=== PATIENT | male | born 1990 | race Caucasian/White ===

== ENCOUNTER 2019-05-31 10:50 | Emergency (ER) | payer BC, SELFPAY ==
[2019-05-31 10:52] VITALS: BP 148/83; PULSE 84; RESP 20; TEMP 36.5; O2SAT 100; BMI 24.3
--- NOTE | 2019-05-31 11:17 | ECG_ITS ---
Measurements Intervals [place] Rate: 76 P: 66 IA: 134 QRS: 80 QRSD: 78 T: 61 QT: 361 QTc: 407 SINUS RHYTHM WITH SINUS ARRHYTHMIA No previous ECG available for comparison Electronically Signed On 05-31-2019 16:50:18 [employer] by Luther Oakley M.D. [id number]
--- NOTE | 2019-05-31 11:17 | XR_ITS ---
WS: [id number] XR chest 1V portable [id number] REASON FOR EXAM: htn FINDINGS: The heart and mediastinal interfaces were normal. The cardiac silhouette was not enlarged. The lung helms are well aerated. No pneumonia, pleural effusion, pulmonary edema, or mass effect. The hilum and apices are normal. No osseous abnormalities. XR/XR chest 1V portable [id number] IMPRESSION: No active cardiopulmonary changes.
--- NOTE | 2019-05-31 11:18 | ED_ITS ---
HPI - General Adult General: Chief complaint: General Medical Stated complaint: HYPERTENSION Time Seen by Provider: 05/31/19 11:05 History of Present Illness: HPI narrative: Patient arrived via ambulance from the [facility] with the hypertensive episode. 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 just started feeling funny in his hands and arms and had little bit of tunnel vision he checked his pressure with a blood pressure cuff and stethoscope and it was elevated and he went down to the clinic at [place] and they checked it and his blood pressure was very elevated about 170/100 patient does daily workouts does not do any energy drinks had 2 cups of coffee this morning has drank about third gallon of water patient does feel fine now does have some pain in his trapezius on the right side with turning the head patient relates that about 2 weeks ago he checked his blood pressures about 170/100 at home and he has been told multiple times that his systolic pressures been elevated has a history of high blood pressure on his mom's side MD complaint: Hypertension Onset (ago): minute(s) Associated symptoms: Reports nausea and palpitations; Deny dyspnea, headache(s) or rash Review of Systems Narrative: No tenderness to his trapezius presently but he said when he turned his head to the right he felt little twinge of pain on the right side Const: Denies: fever, chills or body aches Eyes: Denies: change in vision or blurry vision ENMT: Denies: throat pain or nasal congestion Card: Reports: palpitations Resp: Denies: shortness of breath, productive cough or non-productive cough GI: Reports: nausea : Denies: difficulty urinating Skin/Breast: Denies: rash Neuro: Denies: headache Psych: Denies: anxiety or depression Tha/Lymph: Denies: easy bruising PFSH ED PFSH: Social History Smoking and tobacco status: never smoked Course Vital Signs: Vital signs: Vital Signs Temperature 97.7 F 05/31/19 10:52 Pulse Rate 84 05/31/19 10:52 Respiratory Rate 20 H 05/31/19 10:52 Blood Pressure 148/83 05/31/19 10:52 Pulse Oximetry 100 05/31/19 10:52 Coding Level of Care Code ED Director [employer] for Pola Squires
[2019-05-31 11:45] LABS: Basophils # 0.1 10^3/uL (0.0-0.1); Basophils % 0.4 %; Eosinophils # 0.1 10^3/uL (0.0-0.8); Eosinophils % 1.1 %; Hematocrit 44.8 % (42.0-52.0); Hemoglobin 15.3 g/dL (11.7-16.6); Lymphocytes # 1.3 10^3/uL (0.8-4.8); Lymphocytes % 11.3 %; Mean Corpuscular HGB Conc 34.2 g/dL (30.0-36.0); Mean Corpuscular Hemoglobin 29.5 pg (28.0-34.0); Mean Corpuscular Volume 86.5 fL (80-94); Mean Platelet Volume 9.5 fL (7.4-10.4); Monocytes # 0.7 10^3/uL (0.2-0.9); Monocytes % 6.1 %; Neutrophils # 9.6 10^3/uL (1.8-7.7); Neutrophils % 80.7 %; Nucleated Red Blood Cells % 0 %; Platelet Count 208 10^3/cmm (130-400); Red Blood Count 5.18 10^6/uL (4.1-5.3); Red Cell Distribution Width 11.3 % (12.1-15.1); White Blood Count 11.9 10^3/uL (4.0-10.0)
[2019-05-31 12:05] LABS: Alanine Aminotransferase 18 U/L (0-41); Albumin Level 4.7 g/dL (3.5-5.2); Alkaline Phosphatase 85 IU/L (40-130); Anion Gap 15.8 (5-19); Aspartate Amino Transferase 24 U/L (0-40); Blood Urea Nitrogen 14 mg/dL (6-20); C Reactive Protein 0.3 mg/L (0.0-4.9); Calcium 9.3 mg/dL (8.5-10.5); Carbon Dioxide 25 mmol/L (22-29); Chloride 100 mmol/L (98-107); Globulin 2.7 g/dL (1.3-4.6); Glomerular Filtration Rate 80.3 mL/min (90-130); Glucose 117 mg/dL (65-115); Magnesium 1.6 mg/dL (1.7-2.3); Potassium 3.8 mmol/L (3.5-5.1); Sodium 137 mmol/L (136-145); Total Bilirubin 0.5 mg/dL (0.15-1.2); Total Protein 7.4 g/dL (6.6-8.7)
[2019-05-31 12:06] LABS: Troponin T (5th) Once 6 ng/mL (0-15)
[2019-05-31 13:03] VITALS: BP 140/66; PULSE 68; RESP 18; O2SAT 97
== END 2019-05-31 13:04 | disposition home or self-care (01) ==
PROVIDERS: Emergency Provider Nurse Practitioner Family; Family Provider Family Medicine
DX: I10 Essential (primary) hypertension (principal); R11.0 Nausea; R00.2 Palpitations
CPT/HCPCS: 36415; 71045; 80053; 83735; 84484; 85025; 86140; 93005; 99282; 99283

== ENCOUNTER 2019-06-29 14:23 | Emergency (ER) | payer BC, SELFPAY ==
[2019-06-29 14:42] VITALS: BP 155/90; PULSE 97; RESP 16; TEMP 36.6; O2SAT 100; BMI 24.3
--- NOTE | 2019-06-29 14:56 | ECG_ITS ---
Measurements Intervals [place] Rate: 86 P: 75 NM: 139 QRS: 83 QRSD: 78 T: 53 QT: 348 QTc: 417 SINUS RHYTHM WITH SINUS ARRHYTHMIA Compared to ECG 05/31/2019 11:39:07 No significant changes Electronically Signed On 06-29-2019 18:14:44 CDT by Ben Hoff M.D. [id number]
[2019-06-29 15:10] VITALS: BP 145/83; PULSE 91; RESP 19; TEMP 36.4; O2SAT 100
[2019-06-29 15:11] LABS: Basophils # 0.1 10^3/uL (0.0-0.1); Basophils % 1.2 %; Eosinophils # 0.2 10^3/uL (0.0-0.8); Eosinophils % 3.2 %; Hematocrit 49.6 % (42.0-52.0); Hemoglobin 17.2 g/dL (11.7-16.6); Lymphocytes # 2.9 10^3/uL (0.8-4.8); Lymphocytes % 38.2 %; Mean Corpuscular HGB Conc 34.7 g/dL (30.0-36.0); Mean Corpuscular Hemoglobin 30.6 pg (28.0-34.0); Mean Corpuscular Volume 88.3 fL (80-94); Monocytes # 0.6 10^3/uL (0.2-0.9); Monocytes % 8.5 %; Neutrophils # 3.7 10^3/uL (1.8-7.7); Neutrophils % 48.6 %; Nucleated Red Blood Cells % 0 %; Platelet Count 203 10^3/cmm (130-400); Red Blood Count 5.62 10^6/uL (4.1-5.3); Red Cell Distribution Width 11.3 % (12.1-15.1); White Blood Count 7.6 10^3/uL (4.0-10.0)
[2019-06-29 15:28] LABS: Anion Gap 16.6 (5-19); Blood Urea Nitrogen 18 mg/dL (6-20); Calcium 9.6 mg/dL (8.5-10.5); Carbon Dioxide 26 mmol/L (22-29); Chloride 98 mmol/L (98-107); Glomerular Filtration Rate 72.6 mL/min (90-130); Glucose 147 mg/dL (65-115); Osmolality Calculated 283 mOsm/kg (285-295); Potassium 3.6 mmol/L (3.5-5.1); Sodium 137 mmol/L (136-145)
--- NOTE | 2019-06-29 15:47 | ED_ITS ---
HPI - General Adult General: Chief complaint: General Medical Stated complaint: light headed, not feeling right Time Seen by Provider: 06/29/19 14:52 History of Present Illness: HPI narrative: 29-year-old male comes in complaining of generally not feeling well he has some abdominal discomfort as well as a numbness tingling sensation bilaterally in the hands. He recently had some adjustment of his blood pressure medications had been at home and was checking his blood pressure multiple times seem to be climbing which made him extremely nervous. He had recently talked with his primary physician by telehealth and he decrease his amlodipine from 5 to 2.5 mg. Associated symptoms: Deny chest pain, dyspnea, malaise, nausea, rash or vomiting Review of Systems Const: Denies: fever, chills, body aches, change in appetite, fatigue or malaise ENMT: Denies: throat pain, ear pain, nasal discharge or nasal congestion Card: Denies: chest pain, edema, shortness of breath on exertion or shortness of breath when lying down Resp: Denies: shortness of breath, productive cough or non-productive cough GI: Denies: abdominal pain, nausea, vomiting, vomiting blood, coffee grounds in vomit, diarrhea, constipation, bloating, blood in stool or black tarry stool : Denies: flank pain, painful urination, urinary frequency or urinary urgency Skin/Breast: Denies: rash or itching PFSH ED PFSH: Medical History (Updated 06/29/19 @ 16:22 by Ken Green DO) No known health problems Surgical History (Updated 06/11/19 @ 15:48 by JUNIOR Troy) No history of previous surgery Family History (Updated 06/11/19 @ 15:49 by JUNIOR Troy) Other No known health problems Social History (Updated 06/11/19 @ 15:51 by JUNIOR Troy) Smoking and tobacco status: never smoked Adopted: No Lives independently: Yes Housing: House Marital status: Single Highest education level completed: Master's Degree Current occupational status: employed 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/hazards: No Current gender identity: Male Physical Exam Const: COMMON NORMALS: no apparent distress GENERAL APPEARANCE: cooperative and comfortable ORIENTATION/CONSCIOUSNESS: Yes awake, Yes oriented to person, Yes oriented to place and Yes oriented to time HENMT: COMMON NORMALS: normocephalic, head/scalp atraumatic, hearing grossly normal bilaterally, external ears normal, EAC's normal, TM's normal bilaterally, nasal mucous membranes and turbinates normal, moist oral mucous membranes and oropharynx normal HEAD & SCALP: normocephalic and atraumatic NOSE: nasal m ucous membranes and turbinates normal EXTERNAL EAR: Yes external ears normal EXTERNAL AUDITORY CANAL: EAC's normal TYMPANIC MEMBRANE: TM's normal bilaterally Eye: COMMON NORMALS: PERRL, EOMs intact bilaterally, conjunctivae normal and no scleral icterus CONJUNCTIVA: Yes conjunctivae normal PUPIL: Yes PERRL Neck/C-Spine: COMMON NORMALS: full ROM, no lymphadenopathy, supple and no JVD Lymph: LYMPHATIC: no lymphadenopathy noted and no lymphedema noted Resp: COMMON NORMALS: normal respiratory effort, no retractions, no use of accessory muscles and clear to auscultation bilaterally AUSCULTATION: clear to auscultation bilaterally Cardio: COMMON NORMALS: no JVD, regular rate, regular rhythm and no murmurs RATE: regular rate RHYTHM: regular rhythm GI: COMMON NORMALS: soft to palpation and no hepatosplenomegaly AUSCULTATION: Yes normoactive bowel sounds PALPATION: Yes soft, No tender, No guarding and Yes no hepatosplenomegaly Extremity: COMMON NORMALS: normal to inspection, normal capillary refill, no clubbing, cyanosis or edema, no calf tenderness and no pedal edema Neuro: SENSORIUM/ORIENTATION: Yes oriented to person, Yes oriented to place and Yes oriented to time Skin: COMMON NORMALS: no rashes or lesions noted GENERAL SKIN EXAM: no rashes or lesions noted Course Vital Signs: Vital signs: Vital Signs Temperature 97.5 F L 06/29/19 15:10 Pulse Rate 77 06/29/19 16:26 Respiratory Rate 14 06/29/19 16:26 Blood Pressure 157/79 06/29/19 16:26 Pulse Oximetry 96 06/29/19 16:26 MDM - General Adult MDM Narrative: Medical decision making narrative: Labs unremarkable patient's mildly polycythemic but otherwise no other significant abnormalities noted were going to go ahead and have him increase his amlodipine to back to 5 mg daily follow-up with primary care doctor in the next 3 to 4 days return if has any problems Lab Data: Labs: Lab Results 06/29/19 06/29/19 Range/Units 14:56 14:56 WBC 7.6 (4.0-10.0) 10^3/ uL RBC 5.62 H (4.1-5.3) 10^6/u L Hgb 17.2 H (11.7-16.6) g/dL Hct 49.6 (42.0-52.0) % MCV 88.3 (80-94) fL MCH 30.6 (28.0-34.0) pg MCHC 34.7 (30.0-36.0) g/dL RDW 11.3 L (12.1-15.1) % Plt Count 203 (130-400) 10^3/c mm MPV 10.0 (7.4-10.4) fL Neut % (Auto) 48.6 % Lymph % (Auto) 38.2 % [place] % (Auto) 8.5 % Eos % (Auto) 3.2 % Baso % (Auto) 1.2 % Neut # (Auto) 3.7 (1.8-7.7) 10^3/u L Lymph # (Auto) 2.9 (0.8-4.8) 10^3/u L [place] # (Auto) 0.6 (0.2-0.9) 10^3/u L Eos # (Auto) 0.2 (0.0-0.8) 10^3/u L Baso # (Auto) 0.1 (0.0-0.1) 10^3/u L Nucleated RBC % (a uto) 0 % Nucleated RBCs # 0.0 /100WBC Sodium 137 (136-145) mmol/L Potassium 3.6 (3.5-5.1) mmol/L Chloride 98 (98-107) mmol/L Carbon Dioxide 26 (22-29) mmol/L Anion Gap 16.6 (5-19) BUN 18 (6-20) mg/dL Creatinine 1.2 (0.7-1.2) mg/dL GFR Calculation 72.6 L (90-130) mL/min Glucose 147 H (65-115) mg/dL Calculated Osmolal ity 283 L (285-295) mOsm/k g Calcium 9.6 (8.5-10.5) mg/dL Discharge Plan Discharge Patient Disposition: Home, Self-Care Clinical Impression: Benign essential HTN Condition: Stable Prescriptions: Changed amlodipine 5 mg tablet 5 mg PO DAILY Qty: 0 RF: 0 No Action citalopram 10 mg tablet 10 mg PO DAILY RF: 0 hydrochlorothiazide 12.5 mg capsule 12.5 mg PO DAILY Qty: 20 RF: 0 Discharge Orders: Discharge Order (Routine); Ordered 06/29/19 Ordered By: Ken Green Referrals: Adrian Marrero MD [Physician] - Discharge Diet: Usual diet Discharge Activity: Resume usual activity Activity Restrictions/Additional Instructions: Follow-up with Dr. Marrero within 1 week Discharge Date/Time: 06/29/19 16:38 Coding Level of Care Code ED Technical Training Coordinator for Pola Squires
[2019-06-29 16:26] VITALS: BP 157/79; PULSE 77; RESP 14; O2SAT 96
== END 2019-06-29 16:38 | disposition home or self-care (01) ==
PROVIDERS: Emergency Provider Family Medicine; Family Provider Family Medicine
DX: I10 Essential (primary) hypertension (principal)
CPT/HCPCS: 12345; 80048; 85025; 93005; 99282; 99283

== ENCOUNTER 2019-07-15 16:11 | Emergency (ER) | payer BC, SELFPAY ==
[2019-07-15 16:31] VITALS: PULSE 108; RESP 18; TEMP 36.5; O2SAT 100; BMI 23.6
--- NOTE | 2019-07-15 16:36 | ED_ITS ---
HPI - General Adult General: Chief complaint: General Medical Stated complaint: shaking/palps Time Seen by Provider: 07/15/19 16:32 History of Present Illness: HPI narrative: 29 yo male presents with a complaint of a slightly elevated blood pressure he recently been seen here and was started amlodipine he had follow-up with his primary care doctor. Seem to be working very well he had run out of it notice his blood pressure was elevated today so we got a refill. Then he started feeling a little odd after he taken it so shortly after that he took the hydroxyzine which we given him for anxiety issues. He got very light what he calls lightheaded and spacey that is somewhat resolved he just feels tired now though symptoms began about 20 minutes after he first took it. Associated symptoms: Deny chest pain, dyspnea, malaise, nausea, rash or vomiting Review of Systems Const: Denies: fever, chills, body aches, change in appetite, fatigue or malaise ENMT: Denies: throat pain, ear pain, nasal discharge or nasal congestion Card: Denies: chest pain, edema, shortness of breath on exertion or shortness of breath when lying down Resp: Denies: shortness of breath, productive cough or non-productive cough GI: Denies: abdominal pain, nausea, vomiting, vomiting blood, coffee grounds in vomit, diarrhea, constipation, bloating, blood in stool or black tarry stool : Denies: flank pain, painful urination, urinary frequency or urinary urgency Skin/Breast: Denies: rash or itching PFSH ED PFSH: Family History (Updated 06/11/19 @ 15:49 by JUNIOR Troy) Other No known health problems Social History Smoking and tobacco status: never smoked Adopted: No Lives independently: Yes Housing: House Marital status: Single Highest education level completed: Master's Degree Current occupational status: employed 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/hazards: No Current gender identity: Male Physical Exam Const: COMMON NORMALS: no apparent distress GENERAL APPEARANCE: cooperative and comfortable ORIENTATION/CONSCIOUSNESS: Yes awake, Yes oriented to person, Yes oriented to place and Yes oriented to time HENMT: COMMON NORMALS: normocephalic, head/scalp atraumatic, hearing grossly normal bilaterally, external ears normal, EAC's normal, TM's normal bilaterally, nasal mucous membranes and turbinates normal, moist oral mucous membranes and oropharynx normal HEAD & SCALP: normocephalic and atraumatic NOSE: nasal mucous membranes and turbinates normal EXTERNAL EAR: Yes external ears normal EXTERNAL AUDITORY CANAL: EAC's normal TYMPANIC MEMBRANE: TM's normal bilaterally Eye: COMMON NORMALS: PERRL, EOMs intact bilaterally, conjunctivae normal and no scleral icterus CONJUNCTIVA: Yes conjunctivae normal PUPIL: Yes PERRL Neck/C-Spine: COMMON NORMALS: full ROM, no lymphadenopathy, supple and no JVD Lymph: LYMPHATIC: no lymphadenopathy noted and no lymphedema noted Resp: COMMON NORMALS: normal respiratory effort, no retractions, no use of accessory muscles and clear to auscultation bilaterally AUSCULTATION: clear to auscultation bilaterally Cardio: COMMON NORMALS: no JVD, regular rate, regular rhythm and no murmurs RATE: regular rate RHYTHM: regular rhythm GI: COMMON NORMALS: soft to palpation and no hepatosplenomegaly AUSCULTATION: Yes normoactive bowel sounds PALPATION: Yes soft, No tender, No guarding and Yes no hepatosplenomegaly Extremity: COMMON NORMALS: normal to inspection, normal capillary refill, no clubbing, cyanosis or edema, no calf tenderness and no pedal edema Neuro: SENSORIUM/ORIENTATION: Yes oriented to person, Yes oriented to place and Yes oriented to time Skin: COMMON NORMALS: no rashes or lesions noted GENERAL SKIN EXAM: no rashes or lesions noted Course Vital Signs: Vital signs: Vital Signs Temperature 97.7 F 07/15/19 17:03 Pulse Rate 90 07/15/19 18:17 Respiratory Rate 20 H 07/15/19 18:17 Blood Pressure 148/67 07/15/19 18:17 Pulse Oximetry 99 07/15/19 18:17 MDM - General Adult MDM Narrative: Medical decision making narrative: Is doing very well at this point he says he does not feel spacey or lightheaded or having any other prob lems now he says everything seems to be back to normal. I think some of it may have been the hydroxyzine. Some of it is probably just anxiety. Patient readily admits he is very anxious and he thinks that some of anxiety to encourage him to follow-up with Dr. Marrero continue on his current dose of amlodipine and discussed with Dr. Marrero long-term anxiety medications if it is felt to be appropriate Lab Data: Labs: Lab Results 07/15/19 07/15/19 Range/Units 17:05 17:05 WBC 11.2 H (4.0-10.0) 10^3/ uL RBC 5.26 (4.1-5.3) 10^6/u L Hgb 16.1 (11.7-16.6) g/dL Hct 46.1 (42.0-52.0) % MCV 87.6 (80-94) fL MCH 30.6 (28.0-34.0) pg MCHC 34.9 (30.0-36.0) g/dL RDW 11.4 L (12.1-15.1) % Plt Count 233 (130-400) 10^3/c mm MPV 9.5 (7.4-10.4) fL Neut % (Auto) 72.3 % Lymph % (Auto) 18.8 % [place] % (Auto) 6.5 % Eos % (Auto) 1.5 % Baso % (Auto) 0.5 % Neut # (Auto) 8.1 H (1.8-7.7) 10^3/u L Lymph # (Auto) 2.1 (0.8-4.8) 10^3/u L [place] # (Auto) 0.7 (0.2-0.9) 10^3/u L Eos # (Auto) 0.2 (0.0-0.8) 10^3/u L Baso # (Auto) 0.1 (0.0-0.1) 10^3/u L Nucleated RBC % (a uto) 0 % Nucleated RBCs # 0.0 /100WBC Sodium 138 (136-145) mmol/L Potassium 3.5 (3.5-5.1) mmol/L Chloride 96 L (98-107) mmol/L Carbon Dioxide 27 (22-29) mmol/L Anion Gap 18.5 (5-19) BUN 14 (6-20) mg/dL Creatinine 1.0 (0.7-1.2) mg/dL GFR Calculation 89.6 L (90-130) mL/min Glucose 103 (65-115) mg/dL Calculated Osmolal ity 282 L (285-295) mOsm/k g Calcium 9.9 (8.5-10.5) mg/dL Discharge Plan Discharge Patient Disposition: Home, Self-Care Clinical Impression: Hypertension, Anxiety Condition: Stable Prescriptions: No Action citalopram 10 mg tablet 10 mg PO DAILY RF: 0 amlodipine 5 mg tablet 5 mg PO DAILY Qty: 0 RF: 0 hydrochlorothiazide 12.5 mg capsule 12.5 mg PO DAILY Qty: 20 RF: 0 Referrals: Adalberto Dickinson MD [Primary Care Provider] - Discharge Diet: Usual diet Discharge Activity: Increase activity as tolerated Activity Restrictions/Additional Instructions: Follow-up with your primary doc care doctor within the week. Discharge Date/Time: 07/15/19 18:19 Coding Level of Care Code ED Development Engineer for Pola Fwd Exam Comprehensive
[2019-07-15 16:48] VITALS: BMI 22.1
--- NOTE | 2019-07-15 16:50 | ECG_ITS ---
Measurements Intervals [place] Rate: 73 P: 73 GA: 145 QRS: 79 QRSD: 78 T: 49 QT: 377 QTc: 416 SINUS RHYTHM WITH SINUS ARRHYTHMIA Compared to ECG 06/29/2019 15:02:48 No significant changes Electronically Signed On 07-16-2019 12:25:07 CDT by Keira Macedo M.D. [id number]
[2019-07-15 17:03] VITALS: BP 134/88; PULSE 72; RESP 18; TEMP 36.5; O2SAT 100
[2019-07-15 17:14] LABS: Basophils # 0.1 10^3/uL (0.0-0.1); Basophils % 0.5 %; Eosinophils # 0.2 10^3/uL (0.0-0.8); Eosinophils % 1.5 %; Hematocrit 46.1 % (42.0-52.0); Hemoglobin 16.1 g/dL (11.7-16.6); Lymphocytes # 2.1 10^3/uL (0.8-4.8); Lymphocytes % 18.8 %; Mean Corpuscular HGB Conc 34.9 g/dL (30.0-36.0); Mean Corpuscular Hemoglobin 30.6 pg (28.0-34.0); Mean Corpuscular Volume 87.6 fL (80-94); Mean Platelet Volume 9.5 fL (7.4-10.4); Monocytes # 0.7 10^3/uL (0.2-0.9); Monocytes % 6.5 %; Neutrophils # 8.1 10^3/uL (1.8-7.7); Neutrophils % 72.3 %; Nucleated Red Blood Cells % 0 %; Platelet Count 233 10^3/cmm (130-400); Red Blood Count 5.26 10^6/uL (4.1-5.3); Red Cell Distribution Width 11.4 % (12.1-15.1); White Blood Count 11.2 10^3/uL (4.0-10.0)
[2019-07-15 17:33] LABS: Anion Gap 18.5 (5-19); Blood Urea Nitrogen 14 mg/dL (6-20); Calcium 9.9 mg/dL (8.5-10.5); Carbon Dioxide 27 mmol/L (22-29); Chloride 96 mmol/L (98-107); Creatinine Clr Calc Pharmacy 109.2892; Glomerular Filtration Rate 89.6 mL/min (90-130); Glucose 103 mg/dL (65-115); Osmolality Calculated 282 mOsm/kg (285-295); Potassium 3.5 mmol/L (3.5-5.1); Sodium 138 mmol/L (136-145)
[2019-07-15 17:39] VITALS: BP 136/88; PULSE 73; RESP 16; O2SAT 97
[2019-07-15 18:17] VITALS: BP 148/67; PULSE 90; RESP 20; O2SAT 99
== END 2019-07-15 18:19 | disposition home or self-care (01) ==
PROVIDERS: Emergency Provider Family Medicine; Family Provider Family Medicine; PCP Family Medicine
DX: I10 Essential (primary) hypertension (principal); F41.9 Anxiety disorder, unspecified
CPT/HCPCS: 12345; 36415; 80048; 85025; 93005; 99282; 99283

== ENCOUNTER 2020-03-21 08:36 | Outpatient (CLI) | payer BC, SELFPAY ==
--- NOTE | 2020-03-21 08:40 | MM_ITS ---
WS: [id number] DIAGNOSTIC BILATERAL DIGITAL MAMMOGRAM WITH CAD Bilateral breast ultrasound, limited HISTORY: LUMP OF RIGHT BREAST, 30-year-old male. Palpable bilateral breast lumps. COMPARISON: None available. TECHNIQUE: Bilateral craniocaudad, mediolateral oblique, and mediolateral views are submitted. Bilate ral CC spot compression views. Computer aided detection utilized. Breast composition: Increased fibroglandular type pattern throughout the RIGHT breast tissue. Signifi cantly greater than the LEFT. No distortion. Small amount of increased density posterior to the LEFT nipple. No nipple retraction. Bilateral breast ultrasound. There is increased fat and fibroglandular type densities throughout the RIGHT breast. This correspon ds to the mammographic findings. There is no discrete mass or shadowing. There is a small amount of i ncreased soft tissue which is very hypoechoic posterior to the nipple within each breast from gynecom astia. MM/[place] [id number] IMPRESSION: BI-RADS: 2-Benign FOLLOW UP: See Report 1. Very minimal gynecomastia bilaterally. 2. Increase fibroglandular type densities throughout the RIGHT breast, more si gnificant than the LEFT. No suspicious mass or shadowing. LACK OF RADIOGRAPHIC EVIDENCE OF MALIGNANCY SHOULD NOT DELAY BIOPSY IF A CLINIC ALLY SUSPICIOUS MASS IS PRESENT.
== END 2020-03-21 08:37 | disposition home or self-care (01) ==
LOC: RADSHAW 08:39
PROVIDERS: PCP Family Medicine; Visit Provider Family Medicine
DX: N63.10 Unspecified lump in the right breast, unspecified quadrant (principal); R92.2 Inconclusive mammogram
CPT/HCPCS: 76642; 77066

== ENCOUNTER → 2020-10-23 13:56 | Outpatient (BNVA) | payer BC, SELFPAY | PROVIDERS: PCP Family Medicine; Visit Provider Family Medicine | DX: F41.0 Panic disorder [episodic paroxysmal anxiety] (principal); I10 Essential (primary) hypertension; Z87.898 Personal history of other specified conditions | CPT/HCPCS: 80053; 82533; 84443; 85025 ==